=== PATIENT | male | born 1925 | race Caucasian/White ===

== ENCOUNTER 2017-05-26 16:44 | Emergency (ER) | payer OTHER ==
--- OUTSIDE RECORDS SUMMARY | 2017-05-26 16:47 | XMS REPORT | Clinical Summary ---
:1925 Author Organization [facility] Address [address] [place] [address] Care Team Providers Name Role Phone Efrain Fletcher MD Primary Care Provider Allergies Active Allergy Reactions Severity Noted Date Comments Penicillins 05/23/2017 Current Medications Prescription Sig. Disp. Refills Start Date End Date Status pantoprazole (PROTONIX) 40 Take 40 mg by Active MG EC tablet mouth daily. irbesartan (AVAPRO) 300 MG Take 300 mg by Active tablet mouth nightly. clopidogrel (PLAVIX) 75 mg Take 75 mg by Active tablet mouth daily. aspirin (ECOTRIN) 81 MG Take 162 mg by Active enteric coated tablet mouth daily. cholecalciferol, vitamin Take by mouth Active D3, (VITAMIN D3) 1,000 daily. unit tablet Active Problems Problem Noted Date Transient cerebral ischemia 05/23/2017 Encounters Date Type Specialty Care Team Description 05/23/2017 - Hospital Encounter General Internal Contreras Caro Transient cerebral 05/24/2017 Medicine MD Teo ischemia, Joglekar, unspecified type MD Jessica (Primary Dx) Vikas Pike MD 05/23/2017 Procedure Pass General Internal Medicine 05/23/2017 Procedure Pass General Internal Medicine 05/23/2017 Procedure Pass General Internal Medicine after 05/25/2016 Social History Tobacco Use Types Packs/Day Years Used Date Never Smoker Smokeless Tobacco: Never Used Alcohol Use Drinks/Week oz/Week Comments No Sex Assigned at Date Recorded Not on file Last Filed Vital Signs Vital Sign Reading Time Taken Blood Pressure 116/64 05/24/2017 3:52 PM CDT Pulse 59 05/24/2017 3:52 PM CDT Temperature 36.4 C (97.6 F) 05/24/2017 3:52 PM CDT Respiratory Rate 20 05/24/2017 3:52 PM CDT Oxygen Saturation 93% 05/24/2017 3:52 PM CDT Inhaled Oxygen Concentration - - Weight 97.5 kg (215 lb) 05/23/2017 7:57 PM CDT Height 182.9 cm (6') 05/24/2017 2:31 AM CDT Body Mass Index 29.16 05/23/2017 7:57 PM CDT Plan of Treatment Health Maintenance Due Date Last Done Comments ZOSTER VACCINE 1987 PNEUMOCOCCAL POLYSACCHARIDE VACCINE AGE 65 AND OVER 10/27/1992 PNEUMOCOCCAL-13 10/27/1992 INFLUENZA VACCINE 09/13/2017 Procedures Procedure Name Priority Date/Time Associated Comments Diagnosis ECHOCARDIOGRAM 2D Routine 05/24/2017 7:20 Results for this COMPLETE W MMODE AM CDT procedure are in SPECTRAL COLOR DOPPLER the results (32007) section. after 05/25/2016 Results Echocardiogram complete w contrast and 3D if needed (05/24/2017 7:20 AM) Specimen Performing Laboratory [facility] [address] [place] [address] Narrative Echocardiography Report [address] [place] [address] Pat.Name:Eda CELAYA.ID:[id number] .Date: 05/24/2017 Refer.MD:VIKAS PIKE MD Exam Time: 6:24:00 AMStudy Type:Routine Echo Height:71.65in Weight:209lb BSA: 2.16 m2 DOBAge:1925,89Y Sex: MALEBP:116/64 HR:59 bpmSonogrphr: Elenita Gale RDCS Pat. Stat.:Inpatient Room:[address] Study Status:Final Echo Event ID:[id number] Order ID:[id number] Reason for Study:STROKE History / Clinical:Hypertension Procedures:2D Echo, Colorflow Doppler Race:C SUMMARY: Technically difficult study due to poor acoustic windows. LV EF is normal. Diastolic dysfunction Grade I (Mild): Impaired relaxation with normal LV filling pressures. FINDINGS: LV: LV size is normal. There is mild concentric LV hypertrophy. LVEF is normal. Difficult to assess regional wall motion; howeverit appears grossly normal. Estimated EF is 60-64 %. RV: RV size is enlarged. RV systolic function is normal. LA: LA volume is difficult to assess. RA: RA volume is difficult to assess. AO: Aortic root diameter is normal. TRIP: No pericardial effusion. AV: Mild thickening and calcification of AV leaflets. MV: Mild mitral annular calcification. Mild mitral regurgitation. PV: Pulmonic valve not well seen. TV: Tricuspid valve not well seen. Mild tricuspid regurgitation Suazo: Diastolic dysfunction Grade I (Mild): Impaired relaxation withnormal LV filling pressures. Other:Estimated PA systolic pressure is 37mmHg, assuming a mean RAPof 5 mmHg. MEASUREMENTS: 2D Parasternal [place] LVOT 2.3 cmLA Ds4 cm LVIDd5 cmIndex2.3 cm/m Ao An2.5 cm LVIDs3.4 cmAo Rtd 3.9 cm Index1.8 cm/m LV%fs 32 % LV Erht890.8 g(122-174) IVSd 1.3 cmLVM Jihdb891.2 g/m2 LVPWd1.3 cmRWT0.5 DOPPLER LVOT For Flow LVOT Area4.2 cm2 LVOT SV 86.2 ml LVOTpkVel 94.1 cm/sHR52.3 bpm LVOTpkPG 3.5 mmHgLVOT CO 4.5 l/min LVOTmnPG 1.8 mmHgLVOT CI 2.1 l/m/m2 LVOT TVI20.7 cm Signed 05/24/2017 05:35 PM Riley Kitchen M.D. Procedure Note Interface, Radiology Results In - 05/24/2017 5:35 PM CDT Echocardiography Report [address] [place] [address] Pat.Name: STALIN CELAYA Pat.ID: [id number] St.Date: 05/24/2017 Refer.MD: VIKAS PIKE MD Exam Time: 6:24:00 AM Study Type:Routine Echo Height: 71.65in Weight: 209lb BSA: 2.16 m2 Age: 9 1925,89Y Sex: MALE BP: 116/64 HR: 59 bpm Sonogrphr: Elenita Gale RDCS [facility]. Stat.:Inpatient Room: [address] Study Status:Final Echo Event ID:[id number] Order ID: [id number] Reason for Study:STROKE History / Clinical:Hypertension Procedures:2D Echo, Colorflow Doppler Race: C SUMMARY: Technically difficult study due to poor acoustic windows. LV EF is normal. Diastolic dysfunction Grade I (Mild): Impaired relaxation with normal LV filling pressures. FINDINGS: LV: LV size is normal. There is mild concentric LV hypertrophy. LV EF is normal. Difficult to assess regional wall motion; however it appears grossly normal. Estimated EF is 60-64%. RV: RV size is enlarged. RV systolic function is normal. LA: LA volume is difficult to assess. RA: RA volume is difficult to assess. AO: Aortic root diameter is normal. TRIP: No pericardial effusion. AV: Mild thickening and calcification of AV leaflets. MV: Mild mitral annular calcification. Mild mitral regurgitation. PV: Pulmonic valve not well seen. TV: Tricuspid valve not well seen. Mild tricuspid regurgitation Suazo: Diastolic dysfunction Grade I (Mild): Impaired relaxation with normal LV filling pressures. Other: Estimated PA systolic pressure is 37mmHg, assuming a mean RAP of 5 mmHg. MEASUREMENTS: 2D Parasternal [place] LVOT 2.3 cm LA Ds 4 cm LVIDd 5 cm Index 2.3 cm/m Ao An 2.5 cm LVIDs 3.4 cm Ao Rtd 3.9 cm Index 1.8 cm/m LV%fs 32 % LV Mass 261.8 g (122-174) IVSd 1.3 cm LVM Index 121.2 g/m2 LVPWd 1.3 cm RWT 0.5 DOPPLER LVOT For Flow LVOT Area 4.2 cm2 LVOT SV 86.2 ml LVOTpkVel 94.1 cm/s HR 52.3 bpm LVOTpkPG 3.5 mmHg LVOT CO 4.5 l/min LVOTmnPG 1.8 mmHg LVOT CI 2.1 l/m/m2 LVOT TVI 20.7 cm Signed 05/24/2017 05:35 PM Riley Kitchen M.D. CBC with platelet and differential (05/24/2017 4:30 AM)Only the most recent of2 resultswithin the time period is included. Component Value Ref Range WBC 7.50 4.50 - 11.00 k/uL RBC 4.70 4.40 - 6.00 m/uL HGB 14.8 14.0 - 18.0 g/dL HCT 42.9 41.0 - 51.0 % MCV 91.3 82.0 - 100.0 fL MCH 31.5 27.0 - 34.0 pg MCHC 34.5 31.0 - 37.0 g/dL RDW - SD 38.1 37.0 - 55.0 fL MPV 9.5 8.8 - 13.2 fL Platelet count 182 150 - 400 k/uL Nucleated RBC 0.00 /100 WBC Neutrophils 57.7 39.0 - 69.0 % Lymphocytes 27.2 25.0 - 45.0 % Monocytes 12.4 (H) 0.0 - 10.0 % Eosinophils 2.1 0.0 - 5.0 % Basophils 0.3 0.0 - 1.0 % Immature granulocytes 0.3Comment: "Immature granulocytes" 0.0 - 1.0 % (promyelocytes, myelocytes, metamyelocytes) Specimen Performing Laboratory Blood [facility] DEPARTMENT OF PATHOLOGY AND [facility] [address] [place] [address] Estimated GFR (05/24/2017 4:00 AM)Only the most recent of2 resultswithin the time period is included. Component Value Ref Range GFR Non Af Amer 79 mL/min/1.73 m2 GFR Af Amer >90 mL/min/1.73 m2 Comment: Chronic kidney disease: <60 mL/min/1.73m2 Kidney failure: <15 mL/min/1.73m2 The estimated GFR is calculated from the IDMS-traceable Modification of Diet in Renal Disease Equation. The accuracy of the calculation is poor when the creatinine is normal. Calculated values >90 mL/min/1.73m2 are not reported. This equation has not been validated in children (<18 years), women, the elderly (>70 years), or ethnic groups other than Caucasians and Americans. Specimen Performing Laboratory Plasma specimen [facility] DEPARTMENT OF PATHOLOGY AND [address] [address] Comprehensive metabolic panel (05/24/2017 4:00 AM)Only the most recent of2 resultswithin the time period is included. Component Value Ref Range Sodium 137 135 - 148 mEq/L Potassium 4.0 3.5 - 5.0 mEq/L Chloride 97 (L) 98 - 112 mEq/L CO2 26 24 - 31 mEq/L Anion gap 14 7 - 15 mEq/L Comment: Starting from May , anion gap calculation no longer incorporates potassium. Please note the change. BUN 12 8 - 23 mg/dL Creatinine 0.9 0.7 - 1.2 mg/dL Glucose 94 65 - 99 mg/dL Calcium 9.1 8.8 - 10.2 mg/dL Protein 6.4 6.3 - 8.3 g/dL Comment: [place] 4.6-7.0 g/dL 1 week 4.4-7.6 g/dL 7 months-1year5.1-7.3 g/dL 1-2 years5.6-7.5 g/dL >3 years6.0-8.0 g/dL 18-150 6.3-8.3 g/dL Albumin 3.8 3.5 - 5.0 g/dL A/G ratio 1.5 0.7 - 3.8 Alkaline phosphatase 64 40 - 129 U/L AST 46 10 - 50 U/L ALT 46 5 - 50 U/L Total bilirubin 0.6 0.0 - 1.2 mg/dL Specimen Performing Laboratory Plasma specimen [facility] DEPARTMENT OF PATHOLOGY AND GENOMIC MEDICINE [address] [place] [address] Troponin (05/23/2017 11:39 PM)Only the most recent of2 resultswithin the time period is included. Component Value Ref Range Troponin <0.30 0.00 - 0.30 ng/mL Comment: 0.30 - 1.49 ng/mlMay indicate increased risk of acute coronary syndrome. >=1.5 ng/mlConsistent with acute myocardial infarction. The diagnostic value of a single normal or non-diagnostic result is questionable.Serial samples at 2-6 hour intervals are required to rule out acute myocardial injury. Specimen Performing Laboratory Plasma specimen [facility] DEPARTMENT OF PATHOLOGY AND GENOMIC MEDICINE [address] [place] [address] MRA Neck Wo Contrast (05/23/2017 10:15 PM) Specimen Performing Laboratory [facility] [address] [place] [address] Narrative EXAMINATION:MRA NECK WO CONTRAST CLINICAL HISTORY:Right-sided weaknessacute stroke vs. TIA COMPARISON: None. FINDINGS: Noncontrast 2-D and 3-D [id number] MRA of the neck is performed. Source images, multiplanar reformats, and three-dimensional reformats are provided. The common and internal carotid arteries are normal in caliber and contour. There is 0% stenosis by NASCET criteria. The left vertebral artery is mildly dominant. No vertebral artery stenosis or dissection is seen. IMPRESSION: Unremarkable MRA of the neck. [facility]-[id number] Procedure Note Interface, Radiology Results Incoming - 05/23/2017 10:53 PM CDT EXAMINATION: MRA NECK WO CONTRAST CLINICAL HISTORY: Right-sided weakness acute stroke vs. TIA COMPARISON: None. FINDINGS: Noncontrast 2-D and 3-D [id number]-st-[id number] MRA of the neck is performed. Source images, multiplanar reformats, and three-dimensional reformats are provided. The common and internal carotid arteries are normal in caliber and contour. There is 0% stenosis by NASCET criteria. The left vertebral artery is mildly dominant. No vertebral artery stenosis or dissection is seen. IMPRESSION: Unremarkable MRA of the neck. [facility]-[id number] MRA Head Wo Contrast (05/23/2017 10:00 PM) Specimen Performing Laboratory [facility] [address] [place] [address] Narrative EXAMINATION:MRA HEAD WO CONTRAST CLINICAL HISTORY:Right-sided weaknessacute stroke vs. TIA COMPARISON: No previous angiogram for comparison. FINDINGS: Noncontrast 3-D leob-yy-uriqbm MRA of the head is performed. Source images, multiplanar reformats, and three-dimensional reformats are provided. No proximal branch occlusion or high-grade stenosis is seen. No aneurysm or vascular malformation is identified. The right YESIKA A1 segment is developmentally hypoplastic. IMPRESSION: Unremarkable MRA of the head. [facility]-[id number] Procedure Note Interface, Radiology Results Incoming - 05/23/2017 10:54 PM CDT EXAMINATION: MRA HEAD WO CONTRAST CLINICAL HISTORY: Right-sided weakness acute stroke vs. TIA COMPARISON: No previous angiogram for comparison. FINDINGS: Noncontrast 3-D fnlk-ne-mgxics MRA of the head is performed. Source images, multiplanar reformats, and three-dimensional reformats are provided. No proximal branch occlusion or high-grade stenosis is seen. No aneurysm or vascular malformation is identified. The right YESIKA A1 segment is developmentally hypoplastic. IMPRESSION: Unremarkable MRA of the head. [facility]-[id number] MRI Brain Wo Contrast (05/23/2017 9:50 PM) Specimen Performing Laboratory [facility] [address] [place] [address] Narrative EXAMINATION:MRI BRAIN WO CONTRAST CLINICAL HISTORY:Right-sided weaknessacute stroke vs. TIA COMPARISON: CT brain exam dated 05/23/2017. FINDINGS: Noncontrast MRI of the brain is interpreted. Diffusion imaging demonstrates no abnormal restricted diffusion. Mild chronic small vessel ischemic changes are noted in the cerebral white matter. Mild involutional changes of the brain are present. No extra-axial collection or mass effect is seen. No hemorrhage is identified. There is minimal superficial siderosis over the right parieto-occipital region which may be related to previous subarachnoid hemorrhage. IMPRESSION: No evidence of recent infarct or other acute intracranial abnormality. Minimal superficial siderosis over the right parieto-occipital region which may be related to previous subarachnoid hemorrhage. [facility]-[id number] Procedure Note [facility], Radiology Results Incoming - 05/23/2017 10:09 PM CDT EXAMINATION: MRI BRAIN WO CONTRAST CLINICAL HISTORY: Right-sided weakness acute stroke vs. TIA COMPARISON: CT brain exam dated 05/23/2017. FINDINGS: Noncontrast MRI of the brain is interpreted. Diffusion imaging demonstrates no abnormal restricted diffusion. Mild chronic small vessel ischemic changes are noted in the cerebral white matter. Mild involutional changes of the brain are present. No extra-axial collection or mass effect is seen. No hemorrhage is identified. There is minimal superficial siderosis over the right parieto-occipital region which may be related to previous subarachnoid hemorrhage. IMPRESSION: No evidence of recent infarct or other acute intracranial abnormality. Minimal superficial siderosis over the right parieto-occipital region which may be related to previous subarachnoid hemorrhage. [facility]-[id number] Sedimentation rate (05/23/2017 8:38 PM) Component Value Ref Range Sedimentation rate 4 0 - 10 mm/hr Specimen Performing Laboratory Blood [facility] DEPARTMENT OF PATHOLOGY AND GENOMIC MEDICINE [address] [place] [address] Hemoglobin A1c (05/23/2017 8:38 PM) Component Value Ref Range Hemoglobin A1C 6.0 (H) 4.0 - 5.6 % Comment: HbA1c cutoffs for diagnosing diabetes: 4.0% - 5.6%=normal 5.7% - 6.4%=increased risk for diabetes (prediabetes) >=6.5%=diabetes Goals for glycemic control (ADA 2016) < 7.0%Target for non adults with diabetes. More or less stringent targets may be appropriate for individual patients. <7.5% Target for Children and adolescents with type 1 diabetes. Specimen Performing Laboratory Blood [facility] DEPARTMENT OF PATHOLOGY AND GENOMIC MEDICINE [address] [place] [address] Syphilis treponemal IgG (05/23/2017 8:15 PM) Component Value Ref Range Syphilis treponemal IgG Non-reactiveComment: Non-reactive: No Non-reactive serological evidence of Syphilis infection Specimen Performing Laboratory Serum [facility] DEPARTMENT OF PATHOLOGY AND GENOMIC MEDICINE [address] [place] [address] Homocystine, plasma (05/23/2017 8:15 PM) Component Value Ref Range Homocysteine 10.8 0.0 - 15.0 umol/L Comment: The risk for coronary vascular disease increases progressively with homocysteine concentration.A 3.4 times greater risk is associated with a homocysteine concentration of greater than 15.8 umol/L as compared to a concentration below 14.1 umol/L. Specimen Performing Laboratory Plasma specimen [facility] DEPARTMENT OF PATHOLOGY AND GENOMIC MEDICINE [address] [place] [address] Vitamin D 25 hydroxy level (05/23/2017 8:15 PM) Component Value Ref Range Vitamin D, 25-hydroxy 51.4 30.0 - 150.0 ng/mL Comment: This assay reports the sum of 25-hydroxy vitamin D3 and 25-hydroxy vitamin D2. Reference range: 0-17 years: Deficiency: less than 20ng/mL Optimum level: greater than or equal to 20 ng/mL. 18 years and older: Deficiency: less than 20ng/mL Insufficiency: 20-29 ng/mL Optimum Level: 30-80 ng/mL The assay reportable range is 3.4155.9 ng/mL. Levels higher than 150 ng/mL may be associated with toxicity. If toxicity is clinically suspected and the reported result is >155.9 ng/mL,contact lab for alternative methods to obtain a definitivelevel. If separate quantitation of 25-hydroxy vitamin D3 and 25-hydroxy vitamin D2 is needed, please contact lab for alternative methods. Specimen Performing Laboratory Blood [facility] DEPARTMENT OF PATHOLOGY AND GENOMIC MEDICINE [address] [place] [address] HIV 1, 2 antibody (05/23/2017 8:15 PM) Component Value Ref Range HIV 1, 2 antibody Non-reactive Non-reactive Comment: Starting from May 12 2015, 4th generation HIV screening and confirmation assays are in use at [facility], consistent with the CDC-recommended algorithm. The screening test detects antibodies to HIV-1, HIV-2 and the p24 antigen. Positive screening results will be automatically reflexed to a HIV-1/HIV-2 differentiation assay. Indeterminant HIV-1 results will be further automatically reflexed to a nucleic acid test for detection of acute infection. Western blot will no longer be performed as a confirmation test. For a quick reference guide on the testing algorithm, please refer to: http://stacks.cdc.gov/view/cdc/82238. Specimen Performing Laboratory Blood [facility] [address] [address] Rheumatoid factor (05/23/2017 8:15 PM) Component Value Ref Range Rheumatoid factor 11 0 - 13 IU/mL Specimen Performing Laboratory Plasma specimen [facility] [address] [address] C-reactive protein (05/23/2017 8:15 PM) Component Value Ref Range CRP <0.30 0.00 - 0.50 mg/dL Specimen Performing Laboratory Plasma specimen [facility] [address] [address] PRAMOD (05/23/2017 8:15 PM) Component Value Ref Range PRAMOD screen Negative Negative Specimen Performing Laboratory Blood [facility] [address] [address] Thyroid stimulating hormone (05/23/2017 8:15 PM) Component Value Ref Range TSH 5.57 (H) 0.27 - 4.20 uIU/mL Specimen Performing Laboratory Plasma specimen [address] [address] T4, free (05/23/2017 8:15 PM) Component Value Ref Range T4, free 1.3 0.9 - 1.7 ng/dL Specimen Performing Laboratory Plasma specimen [facility] [address] [address] Folate level (05/23/2017 8:15 PM) Component Value Ref Range Folate >20.0 4.8 - 24.2 ng/mL Specimen Performing Laboratory Serum [address] [address] Vitamin B12 level (05/23/2017 8:15 PM) Component Value Ref Range Vitamin B12 609 211 - 946 pg/mL Comment: Significant overlap exists between normal and deficiency states. However, most patients with deficiencies will have Serum B12 <200 pg/mL. Specimen Performing Laboratory Serum [facility] PATHOLOGY [facility] [address] [place] [address] Lipid panel (05/23/2017 8:15 PM) Component Value Ref Range Cholesterol 113 <200 mg/dL Triglycerides 98 <150 mg/dL HDL cholesterol 39 (L) >40 mg/dL LDL cholesterol 73Comment: Result obtained by direct LDL <100 mg/dL measurement Lipid panel interpretation SeeBelow Comment: Total Cholesterol (mg/dL) <200 Desirable 304-114Slhrczidml-dtkk >=240High Triglycerides (mg/dL) <150 Normal [phone]-qtvf 200-499High >=500Very high HDL Cholesterol (mg/dL) <40Low (male) <40Low (female) LDL Cholesterol (mg/dL) <100 Optimal 100-129Near or above optimal 751-742Dumwrwtfdr-eiyq 160-189High >=190Very high Risk Catergories that modify LDL goals. Risk CatergoriesLDL goal (mg/dL) CHD and CHD risk equivalent<100 (10-year risk >20%) Multiple (2+) risk factors <130 (10-year risk=<20%) 0-1 risk factors <160 (<10-year risk) Defining levels of lipids in metabolic syndrome Triglycerides>=150 mg/dL HDL Cholesterol Men<40 mg/dL Women<40 mg/dL Non-HDL cholesterol is a second target for therapy in persons with high triglycerides (>=200 mg/dL) Specimen Performing Laboratory Plasma specimen [facility] DEPARTMENT OF PATHOLOGY AND GENOMIC MEDICINE [address] [place] [address] ECG 12 lead (05/23/2017 7:49 PM) Component Value Ref Range Ventricular rate 52 Atrial rate 52 ID interval 170 QRSD interval 100 QT interval 434 QTC interval 403 P axis 1 64 QRS axis 1 2 T wave axis 40 EKG impression Sinus bradycardia-Otherwise normal ECG-In automated comparison with ECG of 23-MAY-2017 19:48,-premature ventricular complexes are no longer present- Specimen Performing Laboratory [facility] [address] [place] [address] POC glucose (05/23/2017 7:46 PM) Component Value Ref Range POC glucose 99 65 - 99 mg/dL Comment: [facility] Notified RN Meter ID: [id number] Borderer: Efrem Khalil Specimen Performing Laboratory [facility] DEPARTMENT OF PATHOLOGY AND [facility] [address] [place] [address] Partial thromboplastin time, activated (05/23/2017 7:23 PM) Component Value Ref Range PTT 32.0 23.0 - 36.0 sec Comment: PTT therapeutic range for unfractionated heparin is 61.0-112.0 seconds which corresponds to Anti-Xa 0.3-0.7 U/ml. Specimen Performing Laboratory Blood [facility] DEPARTMENT OF PATHOLOGY AND [facility] [address] [place] [address] Prothrombin time with INR (05/23/2017 7:23 PM) Component Value Ref Range Prothrombin time 14.4 12.0 - 15.0 sec INR 1.1 Comment: The International Normalized Ratio (INR) is a therapeutic monitoring tool for patients who are stable on oral anticoagulant therapy. An INR of 2.0-3.0 is suggested for deep vein thrombosis/pulmonary embolism. Specimen Performing Laboratory Blood [facility] DEPARTMENT OF PATHOLOGY AND [facility] [address] [place] [address] Stroke Brain Wo Contrast (05/23/2017 7:21 PM) [facility] [address] [place] [address] Narrative EXAMINATION: CT STROKE BRAIN WO CONTRAST CLINICAL HISTORY: FACIAL MUSCLE WEAKNESS PARALYSIS COMPARISON:None. TECHNIQUE: Noncontrast enhanced images of the brain were obtained from the skull base to the vertex. Both soft tissue and bone reconstruction algorithms were performed. CT scans are performed using radiation dose reduction techniques (iterative reconstruction and/or automated exposure control). Technical factors are evaluated and adjusted to ensure appropriate moderation of exposure. Automated dose management technology is applied to adjust radiation exposure while achieving a diagnostic quality image. FINDINGS: Mild generalized brain parenchymal volume loss. Nonspecific hypoattenuation of the supratentorial white matter, likely chronic microangiopathic changes. Mild cerebrovascular calcifications. The brain parenchyma is otherwise unremarkable. The link-white matter differentiation is preserved. No evidence of acute intra or extra-axial hemorrhage, mass, mass effect or acute territorial infarction. There is no acute hydrocephalus. Basal cisterns are patent. No acute soft tissue hematoma or laceration. No skull fractures or aggressive bony lesions. Paranasal sinuses and mastoid air cells are clear. Orbits are normal. IMPRESSION: No acute intracranial abnormality identified. Findings discussed with VIDA BOOTH at 05/23/2017 7:23 PM, with acknowledgement of understanding. [facility]-[id number] Procedure Note [facility], Radiology Results Incoming - 05/23/2017 7:30 PM CDT EXAMINATION: CT STROKE BRAIN WO CONTRAST CLINICAL HISTORY: FACIAL MUSCLE WEAKNESS PARALYSIS COMPARISON: None. TECHNIQUE: Noncontrast enhanced images of the brain were obtained from the skull base to the vertex. Both soft tissue and bone reconstruction algorithms were performed. CT scans are performed using radiation dose reduction techniques (iterative reconstruction and/or automated exposure control). Technical factors are evaluated and adjusted to ensure appropriate moderation of exposure. Automated dose management technology is applied to adjust radiation exposure while achieving a diagnostic quality image. FINDINGS: Mild generalized brain parenchymal volume loss. Nonspecific hypoattenuation of the supratentorial white matter, likely chronic microangiopathic changes. Mild cerebrovascular calcifications. The brain parenchyma is otherwise unremarkable. The link-white matter differentiation is preserved. No evidence of acute intra or extra-axial hemorrhage, mass, mass effect or acute territorial infarction. There is no acute hydrocephalus. Basal cisterns are patent. No acute soft tissue hematoma or laceration. No skull fractures or aggressive bony lesions. Paranasal sinuses and mastoid air cells are clear. Orbits are normal. IMPRESSION: No acute intracranial abnormality identified. Findings discussed with VIDA BOOTH at 05/23/2017 7:23 PM, with acknowledgement of understanding. [facility]-[id number] after 05/25/2016 Insurance Payer Benefit Plan / Group Subscriber ID Type Phone Address MEDICARE MEDICARE PART A AND B xxxxxxxxxx Medicare [place], [place] AETNA AETNA [facility] INDEMNITY xxxxxxxxx Indemnity Home: [address] [place], [place] [phone] [facility] [place] [id number]
--- NOTE | 2017-05-26 17:09 | RAD REPORT ---
EXAM DESCRIPTION: CT - Ct Stroke Brain Wo Cont - 05/26/2017 5:03 pm CLINICAL HISTORY: TIA, suspected CVA, right-sided deficit CLINICAL HISTORY: None. TECHNIQUE: Axial 5 millimeter thick images of the head were obtained without IV contrast. All CT scans are performed using dose optimization technique as appropriate and may include automated exposure control or mA/KV adjustment according to patient size. FINDINGS: No intracranial hemorrhage, mass, or cerebral edema. No acute cortical based infarction. P atient has moderate atrophy and chronic ischemic change. Ventricular size is in proportion to the jessica unt of volume loss. No extra-axial fluid collections. Adamson matter-white matter differentiation is pr eserved. Arterial and physiologic calcifications are present. Visualized portions of the mastoid air cells, paranasal sinuses, and orbits are unremarkable. Findings telephoned to Dr. Frank 5:04 p.m. IMPRESSION: Moderate atrophy and chronic ischemic change. No hemorrhage or acute intracranial findin g. Chronic ischemic changes can mask nonhemorrhagic acute infarction. MR brain followup can be obtained if there is ongoing concern for acute ischemia.
[2017-05-26 17:22] LABS: Absolute Lymphocytes (CBC) 1.8 K/uL (0.7-4.9); Absolute Monocytes 0.9 K/uL (0.1-1.3); Basophils % 0.3 % (0-1.3); Eosinophils % 1.2 % (0-4.4); Hematocrit 46.9 % (39.6-49.0); Lymphocytes % 20.5 % (15.3-44.8); MCH 31.6 pg (27.0-35.0); MPV 8.1 fL (7.6-11.3); RBC Red Blood Cell Count 5.09 M/uL (4.33-5.43)
[2017-05-26] MEDS ORDERED: ASPIRIN 81 MG CHEWABLE TABLET ONE (17:27)
[2017-05-26 17:31] LABS: Potassium 3.7 mEq/L (3.6-5.0)
[2017-05-26 17:32] LABS: Protime INR 1.1
--- NOTE | 2017-05-26 17:34 | RAD REPORT ---
EXAM DESCRIPTION: RAD - Chest Single View - 05/26/2017 5:28 pm CLINICAL HISTORY: CVA COMPARISON: None. FINDINGS: Portable technique limits examination quality. The lungs are grossly clear. The heart is normal in size. No displaced fractures. IMPRESSION: No acute intrathoracic process suspected.
[2017-05-26 18:05] LABS: Urine Bacteria NONE SEEN /HPF (NONE SEEN); Urine Culture Reflex Order NOT NEEDED; Urine RBC <5 /HPF (NONE SEEN)
[2017-05-26 18:14] LABS: Urine Blood NEGATIVE (NEG); Urine Glucose NEGATIVE (NEG); Urine Protein NEGATIVE (NEG); Urine Specific Gravity 1.015 (1.005-1.030)
--- NOTE | 2017-05-26 19:10 | ER ---
Nurse's Notes [facility] Name: Darlyn Pacheco Age: 89 yrs Sex: Male : 1925 Arrival Date: 05/26/2017 Time: 16:47 Bed 13 Private MD: Efrain Fletcher V Diagnosis: Transient Right facial, upper and lower extremity numbness Presentation: 05/26 16:50 Presenting complaint: Patient states: I had a TIA on Monday and was admitted at [facility], I had right sided sensory and motor deficits. It got better quickly but today at 1600 it happened again. Pt reports sx are fading but has some tingling in his right hand, Finance Business Partner equal and strong SINAN, negative for facial droop. Transition of care: patient was not received from another setting of care. Onset of symptoms was May 26, 2017. Care prior to arrival: None. 16:50 Method Of Arrival: Ambulatory la1 16:50 Acuity: COLEEN 2 la1 17:39 No acute neurological deficit is noted. hb Stroke Activation: Symptom onset < 3 hours Physician: Stroke Attending; Name: Dr. Frank; Notified At: 16:52; Arrived At: Physician: Chief Stroke Resident; Name: ; Notified At: 16:52; Arrived At: Physician: Stroke Resident; Name: ; Notified At: 16:52; Arrived At: Physician: ED Attending; Name: ; Notified At: 16:52; Arrived At: Physician: ED Resident; Name: ; Notified At: 16:52; Arrived At: Historical: - Allergies: 16:53 PENICILLINS; la1 - PMHx: 16:53 Hypertension; TIA; la1 - Immunization history:: Adult Immunizations up to date. - Social history:: Smoking status: Patient/guardian denies using tobacco. - Family history:: not pertinent. - Hospitalizations: : No recent hospitalization is reported. Screenin:35 Abuse screen: Denies threats or abuse. Denies injuries from another. Nutritional hb screening: No deficits noted. Tuberculosis screening: No symptoms or risk factors identified. Fall Risk None identified. Assessment: 17:02 Reassessment: pt transported back to ER bed 13 via wheelchair, with MIGUEL Robles. iw 17:03 Reassessment: 20g to LEFT AC, blood drawn and sent with purple lab stickers. hb 17:04 General: Appears in no apparent distress. Behavior is calm, cooperative. Pain: Denies hb pain. 17:04 Neuro: Level of Consciousness is awake, alert, obeys commands, Oriented to person, hb place, time, situation, Finance Business Partner are equal bilaterally Moves all extremities. Full function Gait is steady, Speech is normal, Facial symmetry appears normal, Pupils are PERRLA, Intact. Cardiovascular: Heart tones S1 S2 present Capillary refill < 3 seconds Patient's skin is warm and dry. Respiratory: Airway is patent Trachea midline Respiratory effort is even, unlabored, Respiratory pattern is regular, symmetrical, Breath sounds are clear bilaterally. GI: No signs and/or symptoms were reported involving the gastrointestinal system. : No signs and/or symptoms were reported regarding the genitourinary system. EENT: No signs and/or symptoms were reported regarding the EENT system. Derm: No signs and/or symptoms reported regarding the dermatologic system. Skin is intact, is healthy with good turgor, Skin is pink, warm \T\ dry. Musculoskeletal: No signs and/or symptoms reported regarding the musculoskeletal system. 17:06 Reassessment: BGL 139. hb 17:11 Reassessment: EKG completed. hb 17:12 Reassessment: Dr. Frank at bedside to evaluate pt. hb 17:13 T-PA (Activase) Screening: Indications: Definite evidence of stroke, ischemic, embolic, hb or hypertensive: No. 17:40 Patient has been NPO before screening. The patient is alert, and able to follow hb commands. The patient does not exhibit slurred or garbled speech. The patient is not exhibiting difficulty speaking. The patient does not exhibit difficulty understanding words. The patient is able to swallow own secretions with no drooling or need for suction. Patient tolerated one teaspoon of water. No drooling, immediate coughing, gurgling, or clearing of the throat was noted. The patient tolerated 90mL of water. No drooling, immediate coughing, gurgling, or clearing of the throat was noted. The patient passed the bedside swallow screening. Oral medications may be given as ordered. Contact Physician for further diet orders. Provider notified of bedside swallow screening results: Lawrence Frank MD. 18:30 Reassessment: Patient appears in no apparent distress at this time. No changes from hb previously documented assessment. Patient and/or family updated on plan of care and expected duration. Pain level reassessed. Patient is alert, oriented x 3, equal unlabored respirations, skin warm/dry/pink. 19:19 Reassessment: Patient appears in no apparent distress at this time. Patient and/or hb family updated on plan of care and expected duration. Pain level reassessed. Patient is alert, oriented x 3, equal unlabored respirations, skin warm/dry/pink. Patient denies pain at this time. Patient states feeling better. Patient states symptoms have improved. Vital Signs: 16:53 BP 115 / 72; Pulse 57; Resp 16; Temp 97.1; Pulse Ox 100% on R/A; Weight 97.52 kg; la1 Height 6 ft. 0 in. (182.88 cm); 17:45 BP 110 / 59; Pulse 56; Resp 16; Pulse Ox 100% on R/A; Pain 0/10; hb 18:43 BP 112 / 61; Pulse 57; Resp 16; Pulse Ox 100% on R/A; Pain 0/10; hb 16:53 Body Mass Index 29.16 (97.52 kg, 182.88 cm) la1 NIH Stroke Scale Scores: 17:13 NIHSS Score: 0 hb ED Course: 16:47 Patient arrived in ED. mr 16:48 Efrain Fletcher MD is Private Physician. mr 16:52 Triage completed. la1 16:53 Arm band placed on left wrist. la1 16:58 Margaret Lorenzo, MIGUEL is Primary Nurse. hb 17:02 CT Stroke Brain w/o Contrast In Process Unspecified. EDMS 17:04 Inserted saline lock: 20 gauge in right antecubital area, using aseptic technique. hb Blood collected. 17:09 Lawrence Frank MD is Attending Physician. wa 17:16 EKG done, by lead nuclear medicine technologist. reviewed by Lawrence Frank MD. at1 17:28 Stroke CXR 1 View In Process Unspecified. EDMS 17:35 Patient has correct armband on for positive identification. Bed in low position. Call hb light in reach. Side rails up X 1. 18:55 Urine collected: clean catch specimen, clear. mh5 19:08 Mhedi Martinez MD is Referral Physician. wi 19:19 No provider procedures requiring assistance completed. IV discontinued, intact, hb bleeding controlled, No redness/swelling at site. Pressure dressing applied. Administered Medications: 17:31 Drug: Aspirin Chewable Tablet 324 mg Route: PO; 19:19 Follow up: Response: No adverse reaction hb Outcome: 19:19 AMA AMA form signed hb 19:19 Condition: stable 19:19 Discharge instructions given to patient, Instructed on discharge instructions, follow up and referral plans. medication usage, Demonstrated understanding of instructions, follow-up care, medications. 19:20 Patient left the ED. hb NIH Stroke Scale - NIH Stroke Score Date: 05/26/2017 Time: 17:13 Total Score = 0 1a. Level of Consciousness (LOC) - 0(Alert) 1b. Level of Consciousness (LOC) (Year \T\ Age) - 0(Both) 1c. LOC Commands (Open \T\ Closes Eyes/Case Folder) - 0(Both) 2. Best Gaze (Lateral Gaze Paresis) - 0(Normal) 3. Visual Field Loss - 0(No visual loss) 4. Facial Palsy - 0(Normal) 5a. Left Arm: Motor (10-second hold) - 0(No drift) 5b. Right Arm: Motor (10-second hold) - 0(No drift) 6a. Left Leg: Motor (5-second hold - always test supine) - 0(No drift) 6b. Right Leg: Motor (5-second hold - always test supine) - 0(No drift) 7. Limb Ataxia (finger/nose \T\ heel/marie - test with eyes open) - 0(Absent) 8. Sensory Loss (pinprick arms/legs/face) - 0(Normal) 9. Best Language: Aphasia (description/naming/reading) - 0(No aphasia) 10. Dysarthria (speech clarity - read or repeat words) - 0(Normal) 11. Extinction and Inattention (visual/tactile/auditory/spatial/personal) - 0(No abnormality) Initials: hb Signatures: Dispatcher [employer] Gisselle Langford Irene, RN RN iw Daija castro, technical agronomist EKG Tat1 Maksim Fontaine RN RN la1 Margaret Lorenzo RN RN Gisselle English [facility] Lawrence Frank MD MD wi Corrections: (The following items were deleted from the chart) 17:39 16:56 Stroke Activation: Symptom onset < 3 hours; Stroke Attending Dr. Frank hb notified at 16:52; Chief Stroke Resident notified at 16:52; Stroke Resident notified at 16:52; ED Attending notified at 16:52; ED Resident notified at 16:52 hb
--- NOTE | 2017-05-26 19:10 | EDPHYS ---
Physician Documentation [facility] Name: Darlyn Pacheco Age: 89 yrs Sex: Male : 1925 Arrival Date: 05/26/2017 Time: 16:47 Bed 13 Private MD: Efrain Fletcher V ED Physician Lawrence Frank HPI: 05/26 17:51 This 89 yrs old Male presents to ER via Ambulatory with complaints of wa Numbness Of Face. 17:51 The patient's problem is reported as paresthesias, in right upper extremity, in right wa side of face. Onset: The symptoms/episode began/occurred 1 hour(s) ago, time of onset 1600 hours. states had similar episode 3 days ago. admitted to [facility]. dx'd with TIA with full and negative work up. today happened again. at arrival states symptoms fading and has mild tingling in R hand. Duration: This was a single incident, rapidly resolving. Context: the episode(s) was witnessed, by family, symptoms became apparent at 16:00. occurred at home, occurred while the patient was at rest, Possible contributing factors include: none. The symptoms are alleviated by nothing. The symptoms are aggravated by nothing. Associated signs and symptoms: Pertinent positives: right facial tingling, numbess. R upper and lower extremity numbness, Pertinent negatives: ataxia, blurred vision, confusion, dizziness, headache, lightheadedness, palpitations, shortness of breath, slurred speech. Severity of symptoms: At their worst the symptoms were moderate in the emergency department the symptoms have resolved. Patient's baseline: Neuro: alert and fully oriented, Motor: no deficits, Ambulation: walks without assistance, Speech: normal, The patient has a previous history of TIA. The patient has experienced a previous episode, approximately 3 days ago. The patient has been recently seen by a physician: Sarah benitez. for same. Historical: - Allergies: 16:53 PENICILLINS; la1 - PMHx: 16:53 Hypertension; TIA; la1 - Immunization history:: Adult Immunizations up to date. - Social history:: Smoking status: Patient/guardian denies using tobacco. - Family history:: not pertinent. - Hospitalizations: : No recent hospitalization is reported. ROS: 17:56 Constitutional: Negative for fever, chills, and weight loss, Eyes: Negative for injury, wa pain, redness, and discharge, ENT: Negative for injury, pain, and discharge, Neck: Negative for injury, pain, and swelling, Cardiovascular: Negative for chest pain, palpitations, and edema, Respiratory: Negative for shortness of breath, cough, wheezing, and pleuritic chest pain, Abdomen/GI: Negative for abdominal pain, nausea, vomiting, diarrhea, and constipation, Back: Negative for injury and pain, : Negative for injury, bleeding, discharge, and swelling, MS/Extremity: Negative for injury and deformity, Skin: Negative for injury, rash, and discoloration. 17:56 Neuro: Positive for tingling, weakness, of the righg face, upper and lower extremities. 17:56 All other systems are negative. Exam: 17:56 Radiologist reports: no acute bleed. age-related changes nj 17:56 Constitutional: This is a well developed, well nourished patient who is awake, alert, and in no acute distress. Head/Face: Normocephalic, atraumatic. Eyes: Pupils equal round and reactive to light, extra-ocular motions intact. Lids and lashes normal. Conjunctiva and sclera are non-icteric and not injected. Cornea within normal limits. Periorbital areas with no swelling, redness, or edema. ENT: Nares patent. No nasal discharge, no septal abnormalities noted. Tympanic membranes are normal and external auditory canals are clear. Oropharynx with no redness, swelling, or masses, exudates, or evidence of obstruction, uvula midline. Mucous membranes moist. Neck: Trachea midline, no thyromegaly or masses palpated, and no cervical lymphadenopathy. Supple, full range of motion without nuchal rigidity, or vertebral point tenderness. No Meningismus. Chest/axilla: Normal chest wall appearance and motion. Nontender with no deformity. No lesions are appreciated. Cardiovascular: Regular rate and rhythm with a normal S1 and S2. No gallops, murmurs, or rubs. Normal PMI, no JVD. No pulse deficits. Respiratory: Lungs have equal breath sounds bilaterally, clear to auscultation and percussion. No rales, rhonchi or wheezes noted. No increased work of breathing, no retractions or nasal flaring. Abdomen/GI: Soft, non-tender, with normal bowel sounds. No distension or tympany. No guarding or rebound. No evidence of tenderness throughout. Back: No spinal tenderness. No costovertebral tenderness. Full range of motion. Skin: Warm, dry with normal turgor. Normal color with no rashes, no lesions, and no evidence of cellulitis. MS/ Extremity: Pulses equal, no cyanosis. Neurovascular intact. Full, normal range of motion. Psych: Awake, alert, with orientation to person, place and time. Behavior, mood, and affect are within normal limits. 17:56 Neuro: Orientation: is normal, Mentation: is normal, Memory: is normal, Cranial nerves: grossly normal, Cerebellar function: is grossly normal, Motor: is normal, Sensation: is normal. Vital Signs: 16:53 BP 115 / 72; Pulse 57; Resp 16; Temp 97.1; Pulse Ox 100% on R/A; Weight 97.52 kg; la1 Height 6 ft. 0 in. (182.88 cm); 17:45 BP 110 / 59; Pulse 56; Resp 16; Pulse Ox 100% on R/A; Pain 0/10; hb 18:43 BP 112 / 61; Pulse 57; Resp 16; Pulse Ox 100% on R/A; Pain 0/10; hb 16:53 Body Mass Index 29.16 (97.52 kg, 182.88 cm) la1 NIH Stroke Scale Scores: 17:13 NIHSS Score: 0 hb MDM: 17:09 Patient medically screened. wa 17:59 Differential diagnosis: CVA, TIA, symptoms resolved at arrival. pt frustrated that he wa has to come to [facility] every time this happens. discussed concerns and the issue of TPA with pt. will work up and reassess. plan to obs. Data reviewed: vital signs, nurses notes, lab test result(s), EKG, radiologic studies. Test interpretation: by ED physician or midlevel provider: EKG: HR: 54. sinus bradycardia. diffuse ST-T changes. 18:43 Response to treatment: the patient's symptoms have resolved after treatment. Physician alexandrea consultation: Chao Herzog MD. Special discussion: discussed obs admit with pt. advised on risks and benefits of plan. pt still deciding. may sign AMA. . 19:07 Special discussion: 1900 hrs: still asymptomatic with nml vitals. pt decided to leave nj AMA. risks and benefits discussed and accepted. advised to continue his plavix and ASA. return immediately for symptom reoccurrence. 05/26 16:57 Order name: Basic Metabolic Panel; Complete Time: 18:20 nj 05/26 16:57 Order name: CBC with Diff; Complete Time: 18:20 nj 05/26 16:57 Order name: Protime (+inr); Complete Time: 18:20 nj 05/26 16:57 Order name: Ptt, Activated; Complete Time: 18:20 nj 05/26 16:57 Order name: Urine Microscopic Only; Complete Time: 18:20 nj 05/26 17:13 Order name: Glucose, Ancillary Testing; Complete Time: 18:20 EDMS 05/26 16:57 Order name: CT Stroke Brain w/o Contrast; Complete Time: 18:20 nj 05/26 16:57 Order name: Stroke CXR 1 View; Complete Time: 18:02 nj 05/26 16:57 Order name: EKG; Complete Time: 16:57 nj 05/26 16:57 Order name: Accucheck; Complete Time: 17:14 nj 05/26 16:57 Order name: Cardiac monitoring; Complete Time: 17:14 nj 05/26 16:57 Order name: EKG - Nurse/Tech; Complete Time: 17:14 nj 05/26 17:37 Order name: Urine Dipstick--Ancillary (enter results); Complete Time: 18:20 2 05/26 16:57 Order name: IV Saline Lock; Complete Time: 17:14 nj 05/26 16:57 Order name: Labs collected and sent; Complete Time: 17:14 nj 05/26 16:57 Order name: NPO; Complete Time: 17:14 nj 05/26 16:57 Order name: O2 Per Protocol; Complete Time: 17:14 nj 05/26 16:57 Order name: O2 Sat Monitoring; Complete Time: 17:15 nj 05/26 16:57 Order name: Stroke Swallow Screen; Complete Time: 17:31 nj 05/26 16:57 Order name: Urine Dipstick-Ancillary (obtain specimen); Complete Time: 17:31 nj Administered Medications: 17:31 Drug: Aspirin Chewable Tablet 324 mg Route: PO; hb 19:19 Follow up: Response: No adverse reaction hb Disposition: 05/26/17 19:09 Patient has left against medical advice. Impression: Transient Right facial, upper and lower extremity numbness. - Patients states they are going to Home. - Condition is Stable. - Discharge Instructions: Transient Ischemic Attack, [id number]. Follow up: Mehdi Martinez MD; When: 1 - 2 days; Reason: Re-evaluation by your physician. - Problem is new. - Symptoms are resolved. - Notes: continue to take your plavixc and other medicines. return to ER immediately for numbness, tingling, weakness, problems with speech and or difficulty walking. follow up with the neurologist Dr. Martinez within 48 hours otherwise for further evaluation NIH Stroke Scale - NIH Stroke Score Date: 05/26/2017 Time: 17:13 Total Score = 0 1a. Level of Consciousness (LOC) - 0(Alert) 1b. Level of Consciousness (LOC) (Year \T\ Age) - 0(Both) 1c. LOC Commands (Open \T\ Closes Eyes/It Data Architect) - 0(Both) 2. Best Gaze (Lateral Gaze Paresis) - 0(Normal) 3. Visual Field Loss - 0(No visual loss) 4. Facial Palsy - 0(Normal) 5a. Left Arm: Motor (10-second hold) - 0(No drift) 5b. Right Arm: Motor (10-second hold) - 0(No drift) 6a. Left Leg: Motor (5-second hold - always test supine) - 0(No drift) 6b. Right Leg: Motor (5-second hold - always test supine) - 0(No drift) 7. Limb Ataxia (finger/nose \T\ heel/marie - test with eyes open) - 0(Absent) 8. Sensory Loss (pinprick arms/legs/face) - 0(Normal) 9. Best Language: Aphasia (description/naming/reading) - 0(No aphasia) 10. Dysarthria (speech clarity - read or repeat words) - 0(Normal) 11. Extinction and Inattention (visual/tactile/auditory/spatial/personal) - 0(No abnormality) Initials: hb Signatures: Dispatcher [employer] EDMS Maksim Fontaine RN RN la1 Margaret Lorenzo RN RN MonikaLawrence MD MD wa
--- NOTE | 2017-05-28 22:40 | EKG ---
Test Date: 2017-05-26 Test Time: 17:10:18 Frit Mixer: VASILE MEASUREMENT RESULTS: Intervals: Rate: 54 CT: 176 QRSD: 100 QT: 418 QTc: 396 [place]: P: 63 CT: 176 QRS: -10 T: 39 INTERPRETIVE STATEMENTS: Sinus bradycardia Otherwise normal ECG No previous ECG available for comparison Electronically Signed On 05-28-17 22:40:15 CDT by Jadon Garcia
== END 2017-05-26 19:20 | disposition left against medical advice (07) ==
LOC: ER 16:44
DX: R20.2 Paresthesia of skin (principal); I10 Essential (primary) hypertension; Z88.0 Allergy status to penicillin; Z86.73 Personal history of transient ischemic attack (TIA), and cerebral infarction without residual deficits; Z79.01 Long term (current) use of anticoagulants
CPT/HCPCS: 36415; 70450; 71045; 80048; 81003; 81015; 82962; 85025; 85610; 85730; 93005; 99284